=== PATIENT | male | born 1935 | race Caucasian/White ===

== ENCOUNTER 2016-12-29 08:40 | Inpatient (IN) | payer MEDICARE, BC ==
[~2016-12-29] VITALS: Ht 182.9 cm; Wt 104.0 kg
[2016-12-29] VITALS (20 sets, daily range): BP systolic 101–117; BP diastolic 57–65; PULSE 60–68; RESP 15–22; Ht 182.9 cm; Wt 104.0 kg
--- NOTE | 2016-12-29 05:48 | HPN ---
Date/Time of Note Date/Time of Note DATE: 12/29/16 TIME: 05:48 Interval H&P Admission Note Pt. seen H&P reviewed: No system changes ALEX CARTAGENA MD Dec 29, 2016 05:48
[2016-12-29] MEDS: VANCOMYCIN 1 GM (PMX) 250 ML IVPB ONE ×2 (06:30→10:21)
[~2016-12-29 08:40] MED LIST: ALLOPURINOL PO; BUPIVACAINE 0.5% (SDV) 30 ML, morphine SULFATE (PF) 8 MG, EPINEPHrine 0.3 MG, KETOROLAC... IRR SCH; DABI150C PO; DEXAMETHASONE 1 MG TAB PO ONE; DIOVAN PO; DIPHENHYDRAMINE 50 MG INJ IV PRN; DOXY100T20 PO; EZET10TA3 PO; FENTAnyl 50 MCG/ML VIAL IV PRN; FISH OIL PO; FLEC100T PO; GABAPENTIN 300 MG CAP PO ONE; HYDROMET SYRUP; HYDROmorphONE (0.2 MG/ML) 10ML SYG IV PRN; LOVA20TA PO; MEPERIDINE 25 MG INJ IV PRN; METO-448 PO; METOCLOPRAMIDE 10 MG INJ IV PRN; ONDANSETRON 4 MG INJ IV PRN; ROCURONIUM 50 MG INJ ONE; SUCCINYLCHOLINE CHLORIDE 100 MG/5 ML SYG IV ONE; TRANEXAMIC ACID 1,000 MG in SOD CHLORIDE 0.9% 100 ML IVPB ONE; [UNRECOGNIZED DRUG - OTHER] PO; [UNRECOGNIZED DRUG - OTHER] PO; traMADol 50 MG TAB PO ONE
[2016-12-29] MEDS ORDERED: TAMS0.4C2 PO (09:14)
[2016-12-29] MEDS ORDERED: METO-335 PO (09:15)
[2016-12-29] MEDS ORDERED: VALS1TAB76 PO (09:15)
[2016-12-29] MEDS ORDERED: FOLI-49 PO (09:16)
[2016-12-29] MEDS ORDERED: ALLO100T PO (09:17)
[2016-12-29 09:56] LABS: BASOPHIL # 0.1 10^3/ul (0.0-0.1); BASOPHILS % 0.5 % (0.0-2.0); EOSINOPHILS # 0.1 10^3/ul (0.0-0.5); EOSINOPHILS % 1.5 % (0.0-7.0); HEMATOCRIT 39.9 % (42.0-52.0); HEMOGLOBIN 14.2 g/dl (14.0-18.0); LYMPHOCYTES # 1.8 10^3/ul (0.8-2.9); LYMPHOCYTES % 19.8 % (15.0-51.0); MEAN CORPUSCULAR HEMOGLOBIN 32.5 pg (29.0-33.0); MEAN CORPUSCULAR HGB CONC 35.6 g/dl (32.0-37.0); MEAN CORPUSCULAR VOLUME 91.3 fl (82.0-101.0); MEAN PLATELET VOLUME 10.8 fl (7.4-10.4); MONOCYTE # 0.9 10^3/ul (0.3-0.9); MONOCYTES % 9.7 % (0.0-11.0); NEUTROPHIL # 6.3 10^3/ul (1.6-7.5); NEUTROPHILS % 68.2 % (39.0-77.0); PLATELET COUNT 193 10^3/UL (140-415); RED BLOOD COUNT 4.37 10^6/ul (4.70-6.10); RED CELL DISTRIBUTION WIDTH 13.4 % (11.5-14.5); WHITE BLOOD COUNT 9.3 10^3/ul (4.8-10.8)
[2016-12-29] MEDS ORDERED: LACTATED RINGER'S 1,000 ML IV* SCH (10:00)
[2016-12-29 10:20] LABS: ALBUMIN 4.7 g/dl (3.3-4.9); ALBUMIN/GLOBULIN RATIO 1.46; BILIRUBIN,INDIRECT 0.9 mg/dl (0-1.1); BILIRUBIN,TOTAL 0.9 mg/dl (0.2-1.3); TOTAL PROTEIN 7.9 g/dl (6.1-8.1)
--- NOTE | 2016-12-29 10:30 | RADRPT ---
PROCEDURE: XR Chest 1 View. CLINICAL INDICATION: Abnormal breath sounds, preop. TECHNIQUE: AP view of the chest was obtained. COMPARISON: None. FINDINGS: The heart size is within normal limits. Calcified atherosclerosis is noted in the aorta. The lungs are hypoinflated. Subsegmental atelectasis is noted in the bilateral lower lungs. No consolidations are identified. No pneumothorax is seen. Partially visualized right shoulder replacement is ident ified. Potential misalignment of the prosthetic line components is observed. Degenerative changes ar e noted in the left shoulder. Bone anchors are seen in the left humeral head. IMPRESSION: Calcified atherosclerosis in the aorta. Subsegmental atelectasis in the bilateral lower lungs. Partially visualized right shoulder replacement. There is potential misalignment of the prosthetic g lenoid component. Further characterization with a right shoulder series is recommended. RPTAT: AA .Rony Thomas MD, MD Date Time Electronically viewed and signed by .Rony Thomas MD, MD on 12/29/2016 10:30 .P/
[2016-12-29 10:34] LABS: CALCIUM 9.2 mg/dl (8.4-10.2); CREATININE 0.98 mg/dl (0.61-1.24); POTASSIUM 3.9 mmol/L (3.5-5.1)
[2016-12-29 11:03] LABS: INR 0.96; PROTIME 12.8 Sec (12.2-14.2)
[2016-12-29 11:53] LABS: PARTIAL THROMBOPLASTIN TIME 24.5 Sec (25.0-35.0)
[2016-12-29] MEDS ORDERED: ROPIVACAINE 0.5 % 30 ML VIAL ONE (14:28)
[2016-12-29] MEDS ORDERED: BUPIVACAINE 0.5%/EPI (SDV) 30 ML INJ INJ ONE (14:33)
[2016-12-29] MEDS ORDERED: MIDAZOLAM 1 MG/ML 2 ML INJ ONE (14:41)
[2016-12-29] MEDS ORDERED: CA CHLORIDE 10% 10 ML SYRINGE ONE (15:00)
[2016-12-29] MEDS ORDERED: THROMBIN 5000 UNIT VIAL ONE (15:00)
[2016-12-29] MEDS ORDERED: POLYMYXIN/BACITRACIN 1L IRRIG ONE (15:00)
[2016-12-29] MEDS ORDERED: BUPIVACAINE 0.5%/EPI (SDV) 30 ML INJ ONE (15:00)
[2016-12-29] MEDS ORDERED: SUGAMMADEX SODIUM 200 MG/2 ML VIAL IV ONE (15:03)
[2016-12-29] MEDS ORDERED: LIDOCAINE 2% (SDV) 5 ML INJ ONE (15:03)
[2016-12-29] MEDS ORDERED: PROPOFOL 20 ML ONE (15:03)
--- NOTE | 2016-12-29 15:58 | OPR ---
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 Assistance was necessary as a result of the highly technical nature of this operation. When performing an open total shoulder replacement, it is critical to have a trained assistant executive housekeeper who is an expert in handling the extremity and assisting the surgeon in tasks such as manipulation of the arm, protection of the neurovascular structures and positioning the implants. This assistance cannot be performed by a preparatory technician, as it is considered an integral part of the procedure and the assistant executive housekeeper should be compensated for their time. PROCEDURE IN DETAIL: Following the administration of general anesthesia supplemented with a peripheral nerve block for postoperative pain control. The patient was then placed in the beach chair position. Sterile prep and drape was then undertaken. An extended deltopectoral incision was then carried through the interval exposing the conjoined tendon and retracting it medially. The prior component of the glenoid was loose and in the subacromial space. T here was evidence of reactive synovitis from the chronic laxity. This was debrided. The humeral liner was also worn and this was removed. A new one was placed as well as a new glenosphere. The actual components were implanted with solid fixation. The arm was taken through full range of motion with no evident instability. The joint was then thoroughly irrigated, the deep tissues were approximated using #1 suture followed by closure of the deep layer using 2-0 Monocryl. The skin was closed using 4-0 Monocryl suture, and a Prenio dressing. An Ultrasling was then applied. The patient was awakened and transported to the recovery room in stable condition. Estimated blood loss for this procedure was 200 cc. Radiographs will be obtained in the recovery room. ALEX CARTAGENA MD Dec 29, 2016 15:58
[2016-12-29] MEDS ORDERED: morphine 2 MG INJ IV PRN (16:00)
[2016-12-29] MEDS ORDERED: OXYCODONE/ACETAMINOPHEN (5/325) TAB PO PRN ×2 (16:00)
[2016-12-29] MEDS ORDERED: MAGNESIUM HYDROXIDE 30ML CUP PO PRN (16:00)
[2016-12-29] MEDS ORDERED: ACETAMINOPHEN 500 MG TAB PO PRN (16:00)
[2016-12-29] MEDS ORDERED: DIPHENHYDRAMINE 50 MG INJ IV PRN (16:00)
[2016-12-29] MEDS ORDERED: morphine 4 MG/ML VIAL IV PRN (16:00)
[2016-12-29] MEDS ORDERED: KETOROLAC 15 MG INJ IV PRN (16:00)
[2016-12-29] MEDS ORDERED: ZOLPIDEM 5 MG TAB PO PRN (16:00)
[2016-12-29] MEDS ORDERED: ONDANSETRON 4 MG INJ IV PRN (16:00)
--- NOTE | 2016-12-29 17:19 | RADRPT ---
PROCEDURE: XR Right Shoulder. CLINICAL INDICATION: Right shoulder pain. Postop. TECHNIQUE: Two views. Frontal and oblique. COMPARISON: 04/03/2014. FINDINGS: There is a right shoulder reverse arthroplasty. This appears satisfactory. There is no fracture, dislocation, or loosening. The soft tissues are grossly normal. IMPRESSION: 1. Satisfactory postoperative appearance of the right shoulder. RPTAT: QQ .Bryant Tomlinson MD, MD Date Time Electronically viewed and signed by .Bryant Tomlinson MD, on 12/29/2016 17:19 .R/
[2016-12-29] MEDS ORDERED: TRANEXAMIC ACID 1,000 MG in SOD CHLORIDE 0.9% 100 ML IV SCH (17:30)
[2016-12-29] MEDS: DEXAMETHASONE 2 MG TAB PO SCH (18:56)
[2016-12-29] MEDS ORDERED: ATORVASTATIN 10 MG TAB PO SCH (21:00)
[2016-12-29] MEDS ORDERED: GABAPENTIN 300 MG CAP PO SCH (21:00)
[2016-12-29] MEDS ORDERED: EZETIMIBE 10 MG TAB PO SCH (21:00)
[2016-12-29] MEDS ORDERED: TAMSULOSIN (SR) 0.4 MG CAP PO SCH (21:00)
[2016-12-29] MEDS: SENNA/DOCUSATE NA (8.6MG/50MG) TAB PO SCH (21:37)
[2016-12-29] MEDS: VANCOMYCIN 500MG/NS (PMX) 100 ML IVPB SCH (21:38)
[2016-12-30 00:11] VITALS: BP 119/77; RESP 20
[2016-12-30] MEDS: DABIGATRAN 150 MG CAP PO SCH ×2 (02:42→08:21)
[2016-12-30] MEDS: FLECAINIDE 100 MG TAB PO SCH ×2 (02:42→08:21)
[2016-12-30] MEDS: DEXAMETHASONE 2 MG TAB PO SCH ×2 (02:42→06:35)
[2016-12-30 04:00] VITALS: BP 110/57; RESP 19
[2016-12-30] MEDS: VANCOMYCIN 500MG/NS (PMX) 100 ML IVPB SCH (06:33)
--- NOTE | 2016-12-30 06:36 | PDOCDIS ---
Discharge Instructions DIAGNOSIS Discharge Diagnosis Instability right reverse total shoulder CONDITION Patient Condition: Good HOME CARE INSTRUCTIONS: Diet Instructions: Regular ACTIVITY: Activity Restrictions: Slowly Increase Activity Keep Limb Elevated Bathing Restrictions: Shower FOLLOW UP/APPOINTMENTS Follow-up Plan 2 weeks SCHOOL/WORK RELEASE May return to School/Work with: With Restrictions School/Work Release Comment: 5 pounds tabletop usage for 6 weeks ALEX CARTAGENA MD Dec 30, 2016 06:36
--- NOTE | 2016-12-30 06:36 | DS ---
Date/Time of Note Date/Time of Note DATE: 12/30/16 TIME: 06:35 Discharge Summary Admission/Discharge Info Admit Date/Time Dec 29, 2016 at 08:40 Discharge Date/Time December 30, 2016 after therapy Discharge Diagnosis Instability right reverse total shoulder Patient Condition: Good Procedures Revision of reverse total shoulder, right Hx of Present Illness Patient had an episode of instability of the shoulder about a week ago. Hospital Course He underwent an uncomplicated procedure and on postoperative day #1 he was discharged to be followed up in the office in 2 weeks Home Meds Reported Medications Allopurinol* (Allopurinol*) 100 Mg Tablet, 100 MG PO BID, TAB 12/29/16 Folic Acid* (Folic Acid*) 1 Mg Tablet, 1 MG PO DAILY, TAB 12/29/16 Metoprolol Succinate* (Toprol XL*) 25 Mg Tab.sr.24h, 25 MG PO DAILY, #30 TAB 12/29/16 Valsartan-Hydrochlorothiazide (Valsartan-HCTZ) 160-12.5 Mg Tablet, 1 TAB PO DAILY, #30 TAB 12/29/16 Tamsulosin Hcl* (Tamsulosin Hcl*) 0.4 Mg Cap.er.24h, 0.4 MG PO HS, CAP 12/29/16 Lovastatin* (Lovastatin*) 20 Mg Tablet, 20 MG PO HS, TAB 04/03/14 Flecainide Acetate* (Flecainide Acetate*) 100 Mg Tablet, 100 MG PO BID, TAB 04/03/14 Ezetimibe* (Zetia*) 10 Mg Tablet, 10 MG PO HS, TAB 04/03/14 Dabigatran Etexilate Mesylate* (Pradaxa*) 150 Mg Capsule, 150 MG PO BID, CAP 04/03/14 Discontinued Reported Medications Doxycycline Hyclate* (Doxycycline Hyclate*) 100 Mg Tablet.dr, 100 MG PO BID, TAB 04/03/14 [Ocpregano Oil] No Conflict Check, 510 MG PO DAILY 04/03/14 [Mv] No Conflict Check, 1 CAP.EC PO BID 04/03/14 [Fish Oil] No Conflict Check, 1200 MG PO BID 04/03/14 [Hydromet Syrup] No Conflict Check 04/03/14 [Diovan] No Conflict Check, 60 MG PO DAILY 04/03/14 Metoprolol Tartrate* (Lopressor*) 25 Mg Tab, 25 MG PO BID, TAB 04/03/14 [Allopurinol] No Conflict Check, 200 MG PO HS 04/03/14 Primary Care Provider Yonas Garcia Pending Labs Laboratory Tests Test 12/29/16 09:30 White Blood Count 9.310^3/ul (4.8-10.8) Red Blood Count 4.3710^6/ul (4.70-6.10) Hemoglobin 14.2g/dl (14.0-18.0) Hematocrit 39.9% (42.0-52.0) Mean Corpuscular Volume 91.3fl (82.0-101.0) Mean Corpuscular Hemoglobin 32.5pg (29.0-33.0) Mean Corpuscular Hemoglobin Concent 35.6g/dl (32.0-37.0) Red Cell Distribution Width 13.4% (11.5-14.5) Platelet Count 90676^3/UL (140-415) Mean Platelet Volume 10.8fl (7.4-10.4) Neutrophils % 68.2% (39.0-77.0) Lymphocytes % 19.8% (15.0-51.0) Monocytes % 9.7% (0.0-11.0) Eosinophils % 1.5% (0.0-7.0) Basophils % 0.5% (0.0-2.0) Nucleated Red Blood Cells % 0.0/100WBC (0.0-0.0) Neutrophils # 6.310^3/ul (1.6-7.5) Lymphocytes # 1.810^3/ul (0.8-2.9) Monocytes # 0.910^3/ul (0.3-0.9) Eosinophils # 0.110^3/ul (0.0-0.5) Basophils # 0.110^3/ul (0.0-0.1) Nucleated Red Blood Cells # 0.010^3/ul (0.0-0.0) Prothrombin Time 12.8Sec (12.2-14.2) Prothrombin Time Ratio 1.0 INR International Normalized Ratio 0.96 Activated Partial Thromboplast Time 24.5Sec (25.0-35.0) Sodium Level 143mmol/L (135-144) Potassium Level 3.9mmol/L (3.5-5.1) Chloride Level 106mmol/L (97-110) Carbon Dioxide Level 25mmol/L (21-31) Anion Gap 16 (8-16) Blood Urea Nitrogen 25mg/dl (7-20) Creatinine 0.98mg/dl (0.61-1.24) Glucose Level 98mg/dl (70-220) Calcium Level 9.2mg/dl (8.4-10.2) Total Bilirubin 0.9mg/dl (0.2-1.3) Direct Bilirubin 0.00mg/dl (0.00-0.20) Indirect Bilirubin 0.9mg/dl (0-1.1) Aspartate Amino Transf (AST/SGOT) 22IU/L (15-46) Alanine Aminotransferase (ALT/SGPT) 30IU/L (13-69) Alkaline Phosphatase 72IU/L (42-121) Total Protein 7.9g/dl (6.1-8.1) Albumin 4.7g/dl (3.3-4.9) Globulin 3.20g/dl (1.3-3.2) Albumin/Globulin Ratio 1.46 ALEX CARTAGENA MD Dec 30, 2016 06:36
--- NOTE | 2016-12-30 06:37 | PN ---
Date/Time of Note Date/Time of Note DATE: 12/30/16 TIME: 06:36 24 hour Interval Summary Patient is awake and alert with no pain Physical Exam Physical examination: His wound is clean and dry. He is neurologically intact. He has no signs of DVT. Vital Signs Date Time Temp Pulse Resp B/P Pulse Ox O2 Delivery O2 Flow Rate FiO2 12/30/16 04:00 98.2 54 19 110/57 94 12/29/16 17:14 Nasal Cannula 3.0 Intake and Output 12/29/16 12/29/16 12/30/16 15:00 23:00 07:00 Intake Total 1110 ml Output Total 50 ml Balance 1060 ml VTE Prophylaxis VTE Prophylaxis Intervention: SCD's Lines/Catheters IV Catheter Type: Saline Lock Turcios in Place: No Results Result Diagram: 12/29/1692912/29/1630 Results 24hrs Laboratory Tests Test 12/29/16 09:30 White Blood Count 9.3 Red Blood Count 4.37 L Hemoglobin 14.2 Hematocrit 39.9 L Mean Corpuscular Volume 91.3 Mean Corpuscular Hemoglobin 32.5 Mean Corpuscular Hemoglobin Concent 35.6 Red Cell Distribution Width 13.4 Platelet Count 193 Mean Platelet Volume 10.8 H Neutrophils % 68.2 Lymphocytes % 19.8 Monocytes % 9.7 Eosinophils % 1.5 Basophils % 0.5 Nucleated Red Blood Cells % 0.0 Neutrophils # 6.3 Lymphocytes # 1.8 Monocytes # 0.9 Eosinophils # 0.1 Basophils # 0.1 Nucleated Red Blood Cells # 0.0 Prothrombin Time 12.8 Prothrombin Time Ratio 1.0 INR International Normalized Ratio 0.96 Activated Partial Thromboplast Time 24.5 L Sodium Level 143 Potassium Level 3.9 Chloride Level 106 Carbon Dioxide Level 25 Anion Gap 16 Blood Urea Nitrogen 25 H Creatinine 0.98 Glucose Level 98 Calcium Level 9.2 Total Bilirubin 0.9 Direct Bilirubin 0.00 Indirect Bilirubin 0.9 Aspartate Amino Transf (AST/SGOT) 22 Alanine Aminotransferase (ALT/SGPT) 30 Alkaline Phosphatase 72 Total Protein 7.9 Albumin 4.7 Globulin 3.20 Albumin/Globulin Ratio 1.46 Assessment/Plan Chief Complaint/Hosp Course He underwent an uncomplicated procedure and on postoperative day #1 he was discharged to be followed up in the office in 2 weeks Problems: Assessment/Plan Assessment/plan: Patient is to be discharged after therapy this morning follow- up in 2 weeks Medications Medications Home Meds Reported Medications Allopurinol* (Allopurinol*) 100 Mg Tablet, 100 MG PO BID, TAB 12/29/16 Folic Acid* (Folic Acid*) 1 Mg Tablet, 1 MG PO DAILY, TAB 12/29/16 Metoprolol Succinate* (Toprol XL*) 25 Mg Tab.sr.24h, 25 MG PO DAILY, #30 TAB 12/29/16 Valsartan-Hydrochlorothiazide (Valsartan-HCTZ) 160-12.5 Mg Tablet, 1 TAB PO DAILY, #30 TAB 12/29/16 Tamsulosin Hcl* (Tamsulosin Hcl*) 0.4 Mg Cap.er.24h, 0.4 MG PO HS, CAP 12/29/16 Lovastatin* (Lovastatin*) 20 Mg Tablet, 20 MG PO HS, TAB 04/03/14 Flecainide Acetate* (Flecainide Acetate*) 100 Mg Tablet, 100 MG PO BID, TAB 04/03/14 Ezetimibe* (Zetia*) 10 Mg Tablet, 10 MG PO HS, TAB 04/03/14 Dabigatran Etexilate Mesylate* (Pradaxa*) 150 Mg Capsule, 150 MG PO BID, CAP 04/03/14 Discontinued Reported Medications Doxycycline Hyclate* (Doxycycline Hyclate*) 100 Mg Tablet.dr, 100 MG PO BID, TAB 04/03/14 [Ocpregano Oil] No Conflict Check, 510 MG PO DAILY 04/03/14 [Mv] No Conflict Check, 1 CAP.EC PO BID 04/03/14 [Fish Oil] No Conflict Check, 1200 MG PO BID 04/03/14 [Hydromet Syrup] No Conflict Check 04/03/14 [Diovan] No Conflict Check, 60 MG PO DAILY 04/03/14 Metoprolol Tartrate* (Lopressor*) 25 Mg Tab, 25 MG PO BID, TAB 04/03/14 [Allopurinol] No Conflict Check, 200 MG PO HS 04/03/14 ALEX CARTAGENA MD Dec 30, 2016 06:37
[2016-12-30 07:59] VITALS: BP 127/65; RESP 18
[2016-12-30] MEDS: SENNA/DOCUSATE NA (8.6MG/50MG) TAB PO SCH (08:20)
[2016-12-30] MEDS ORDERED: VALSARTAN 160 MG TAB PO SCH (09:00)
[2016-12-30] MEDS ORDERED: METOPROLOL (XL) 25 MG TAB PO SCH (09:00)
[2016-12-30] MEDS ORDERED: HYDROCHLOROTHIAZIDE 12.5 MG CAP PO SCH (09:00)
== END 2016-12-30 10:28 | disposition home or self-care (01) | DRG 483 ==
LOC: REC 08:40 → MS1 17:20
PROVIDERS: ADMIT Orthopaedic Surgery; ATTEND Orthopaedic Surgery
PROC: 0RPJ0JZ Removal of Synthetic Substitute from Right Shoulder Joint, Open Approach (ICD-10-PCS; 2016-12-29)
PROC: 0RRJ00Z Replacement of Right Shoulder Joint with Reverse Ball and Socket Synthetic Substitute, Open Approach (ICD-10-PCS; principal; 2016-12-29 12:00)
DX: T84.038A Mechanical loosening of other internal prosthetic joint, initial encounter (principal); I48.0 Paroxysmal atrial fibrillation; I10 Essential (primary) hypertension; Y83.8 Other surgical procedures as the cause of abnormal reaction of the patient, or of later complication, without mention of misadventure at the time of the procedure; Y92.019 Unspecified place in single-family (private) house as the place of occurrence of the external cause; E78.5 Hyperlipidemia, unspecified; Z96.611 Presence of right artificial shoulder joint; Z79.01 Long term (current) use of anticoagulants; Z87.891 Personal history of nicotine dependence
CPT/HCPCS: 71010; 80053; 85025; 85610; 85730; 88300; 97167; J0171; J0735; J1885; J2250; J2274; J2795; J3370; J7120